=== PATIENT | male | born 1975 | race African-American/Black ===

== ENCOUNTER 2021-05-17 09:19 | Emergency (ER) | payer SELFPAY ==
[2021-05-17] MEDS ORDERED: Ketorolac Tromethamine 30 MG/ML VIAL ONE (10:34)
[2021-05-17] MEDS ORDERED: Dexamethasone 10 MG/ML VIAL ONE (10:34)
[2021-05-17] MEDS ORDERED: PROVENTIL INHALER 6.7 G (200 INHALATIONS) ONE (10:47)
[2021-05-17] MEDS ORDERED: Albuterol 200 PUFF (6.7GM INHALER) ONE (11:02)
[2021-05-17 11:05] LABS: Hemoglobin 15.5 g/dL (14.0-18.0); Mean Corpuscular HGB CONC 34.2 g/dL (32.0-36.0); Mean Corpuscular Hemoglobin 32.2 pg (27.0-31.0); Mean Corpuscular Volume 94.2 fL (78.0-98.0); Mean Platelet Volume 8.9 fL (7.4-10.4); Platelet Count 199 thou/uL (130-400); Red Blood Cell (RBC) Count 4.81 mill/uL (4.70-6.10); White Blood Cell (WBC) Count 7.4 thou/uL (4.8-10.8)
[2021-05-17 11:19] LABS: ALT (SGPT) 108 U/L (8-55); AST (SGOT) 97 U/L (5-34); Albumin 3.7 g/dL (3.5-5.0); Alkaline Phosphatase 63 U/L (40-110); Anion Gap 15 mmol/L (10-20); BUN (Urea Nitrogen) 32 mg/dL (8.9-20.6); Bilirubin, Total 1.1 mg/dL (0.2-1.2); Calc. Creatinine Clearance 0 mL/min (70-130); Calcium 8.4 mg/dL (7.8-10.44); Carbon Dioxide 20 mmol/L (22-29); Chloride 97 mmol/L (98-107); Globulin 3.8 g/dL (2.4-3.5); Glucose 102 mg/dL (70-105); Potassium 4.3 mmol/L (3.5-5.1); Protein, Total 7.5 g/dL (6.0-8.3); Sodium 128 mmol/L (136-145)
[2021-05-17 11:33] LABS: Band 23 % (5-11); Lymphocytes 7 % (21-51); MDiff Complete? YES; Monocytes 1 % (0-10); Neutrophil 68 % (42-75); Platelet Morphology Comment Appears Adequate; RBC Morphology Normal; Reactive Lymphocytes 1 % (0-10); Vacuoles SLIGHT
[2021-05-17 12:16] LABS: SARS-CoV-2 NAA Rapid Test DETECTED (NotDetected)
== END 2021-05-17 14:36 | disposition home or self-care (01) ==
LOC: ERS 09:19
DX: U07.1 COVID-19 (principal); J12.82 Pneumonia due to coronavirus disease 2019; E87.1 Hypo-osmolality and hyponatremia; N28.9 Disorder of kidney and ureter, unspecified
CPT/HCPCS: 0240U; 36415; 71045; 80053; 83605; 85025; 87040; 87149; 93005; 94760; 96374; 96375; J1100; J1885